=== PATIENT | female | born 1980 | race Caucasian/White ===

== ENCOUNTER 2017-12-20 12:31 | Outpatient (CLI) | payer OTHER ==
[2017-12-20 12:58] LABS: BASOPHILS # (AUTO) 0.1 10^3/uL (0.0-0.1); BASOPHILS % (AUTO) 0.5 %; EOSINOPHILS # (AUTO) 0.1 10^3/uL (0.0-0.7); EOSINOPHILS % (AUTO) 1.3 %; HGB - HEMOGLOBIN 13.2 g/dL (12.0-16.0); LYMPHOCYTES # (AUTO) 2.3 10^3/uL (1.5-3.5); LYMPHOCYTES % (AUTO) 22.2 %; MEAN CORPUSCULAR HEMOGLOBIN 26.4 pg (27.0-31.0); MEAN CORPUSCULAR HGB CONC 33.5 g/dL (32.0-36.0); MEAN CORPUSCULAR VOLUME 79.1 fL (81.0-99.0); MEAN PLATELET VOLUME 8.1 fL (7.9-10.8); MONOCYTES # (AUTO) 0.8 10^3/uL (0.0-1.0); NEUTROPHILS # (AUTO) 7.2 10^3/uL (1.5-6.6); PLT - PLATELET COUNT 272 10^3/uL (130-450); RED BLOOD COUNT 4.99 10^6/uL (4.20-5.40); RED CELL DISTRIBUTION WIDTH 14.4 % (12.0-15.0); WHITE BLOOD COUNT 10.6 x10^3/uL (4.8-10.8)
== END 2017-12-20 12:32 | disposition home or self-care (01) ==
LOC: LAB 12:31
DX: T81.9XXA Unspecified complication of procedure, initial encounter (principal)
CPT/HCPCS: 36415; 85025

== ENCOUNTER 2018-05-24 09:55 | Outpatient (CLI) | payer OTHER ==
[2018-05-24 10:07] LABS: BILIRUBIN,URINE NEGATIVE (NEGATIVE); GLUCOSE, URINE (UA) NEGATIVE (NEGATIVE); KETONES,URINE (UA) NEGATIVE (NEGATIVE); LEUKOCYTE ESTERASE, URINE NEGATIVE (NEGATIVE); NITRITE,URINE NEGATIVE (NEGATIVE); OCCULT BLOOD,URINE NEGATIVE (NEGATIVE); PROTEIN,URINE NEGATIVE (NEGATIVE); UROBILINOGEN,URINE 0.2 (NORMAL) E.U./dL (NORMAL)
[2018-05-24 10:22] LABS: BACTERIA,URINE None Seen /HPF (None Seen); CLARITY,URINE CLEAR (CLEAR); RBC,URINE None Seen /HPF (0-5); SQUAMOUS EPITHELIAL CELL,UR FEW Squamous (<= Few)
== END 2018-05-24 09:56 | disposition home or self-care (01) ==
LOC: LAB 09:55
PROVIDERS: ATTEND Obstetrics & Gynecology
DX: R39.9 Unspecified symptoms and signs involving the genitourinary system (principal); R30.0 Dysuria
CPT/HCPCS: 81001; 87086

== ENCOUNTER 2018-08-10 16:44 | Emergency (ER) | payer BC, OTHER ==
[2018-08-10 17:05] LABS: BILIRUBIN,URINE NEGATIVE (NEGATIVE); GLUCOSE, URINE (UA) NEGATIVE (NEGATIVE); KETONES,URINE (UA) TRACE mg/dL (NEGATIVE); LEUKOCYTE ESTERASE, URINE NEGATIVE (NEGATIVE); NITRITE,URINE NEGATIVE (NEGATIVE); OCCULT BLOOD,URINE NEGATIVE (NEGATIVE); PH,URINE 5.5 PH (5.0-7.5); PROTEIN,URINE NEGATIVE (NEGATIVE); UROBILINOGEN,URINE 0.2 (NORMAL) E.U./dL (NORMAL)
[2018-08-10 17:06] LABS: CLARITY,URINE CLEAR (CLEAR); HCG UR QUAL NEGATIVE
--- NOTE | 2018-08-10 17:09 | ED Physician Documentation ---
PD HPI ABD PAIN - Stated complaint Stated Complaint: ABD PX - Chief complaint Chief Complaint: Abd Pain - History obtained from History obtained from: Patient - History of Present Illness Timing - onset: Other (For the last 3 days she has had constant but at times worsening right upper quadrant and epigastric pain that became acutely worse after eating a roast beef sandwich today. She has no history of abdominal surgeries, but is being planned for hysterectomy for MEEK-3 in the near future.) Review of Systems Ten Systems: 10 systems reviewed and negative Constitutional: reports: Reviewed and negative. denies: Fever, Chills Cardiac: denies: Chest pain / pressure, Palpitations Respiratory: denies: Dyspnea, Cough GI: reports: Abdominal Pain, Nausea. 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 : None HEENT: None Psych: None Musculoskeletal: None Derm: None - Past Surgical History Past Surgical History: No - Present Medications Home Medications: Ambulatory Orders Medication Instructions Recorded Confirmed Levonorgestrel [Mirena] 08/10/18 - Allergies Allergies/Adverse Reactions: Allergies Allergy/AdvReac Type Severity Reaction Status Date / Time No Known Drug Allergies Allergy Verified 08/10/18 16:54 - Social History Does the pt smoke?: No Smoking Status: Never smoker Does the pt drink ETOH?: No Does the pt have substance abuse?: No - Immunizations Immunizations are current?: Yes - POLST Patient has POLST: No PD ED PE NORMAL - Vitals Vital signs reviewed: Yes - General General: Alert and oriented X 3, No acute distress - HEENT HEENT: PERRL, EOMI - Neck Neck: Supple, no meningeal sign, No bony TTP - Cardiac Cardiac: RRR, No murmur - Respiratory Respiratory: No respiratory distress, Clear bilaterally - Abdomen Abdomen: Other (TTP RUQ, +Jackpot) - Back Back: No CVA TTP, No spinal TTP - Derm Derm: Normal color, Warm and dry - Extremities Extremities: No edema, No calf tenderness / cord - Neuro Neuro: Alert and oriented X 3, Normal speech Results - Vitals Vitals: Vital Signs - 24 hr 08/10/18 08/10/18 16:51 16:53 Temperature 36 C L Heart Rate 70 73 Respiratory 18 16 Rate Blood Pressure 141/76 H 134/86 H O2 Saturation 97 99 Oxygen O2 Source Room air - Labs Labs: Laboratory Tests 08/10/18 08/10/18 08/10/18 16:51 17:20 17:20 WBC 8.2 RBC 5.29 Hgb 13.2 Hct 41.7 MCV 78.8 L MCH 24.9 L MCHC 31.6 L RDW 15.6 H Plt Count 305 MPV 7.8 L Neut # (Auto) 5.5 Lymph # (Auto) 2.2 [place] # (Auto) 0.4 Eos # (Auto) 0.1 Baso # (Auto) 0.1 Absolute Nucleated RBC 0.00 Nucleated RBC % 0.0 Sodium 137 Potassium 3.7 Chloride 103 Carbon Dioxide 25 Anion Gap 9.0 BUN 21 H Creatinine 1.1 H Estimated GFR (MDRD) 57 L Glucose 95 Calcium 9.0 Total Bilirubin 0.5 AST 18 ALT 20 Alkaline Phosphatase 59 Total Protein 7.0 Albumin 4.0 Globulin 3.0 Albumin/Globulin Ratio 1.3 Lipase 29 Urine Color YELLOW Urine Clarity CLEAR Urine pH 5.5 Ur Specific [place] >=1.030 H Urine Protein NEGATIVE Urine Glucose (UA) NEGATIVE Urine Ketones TRACE Urine Occult Blood NEGATIVE Urine Nitrite NEGATIVE Urine Bilirubin NEGATIVE Urine Urobilinogen 0.2 (NORMAL) Ur Leukocyte Esterase NEGATIVE Ur Microscopic Review NOT INDICATED Urine Culture Comments NOT INDICATED Urine HCG, Qual NEGATIVE - Rads (name of study) RUQ sono Radiology: Prelim report reviewed (no stones, normal) PD MEDICAL DECISION MAKING - ED course ED course: This is a 37-year-old woman who has pain suggestive of a biliary source, however no significant abnormal findings were found there. CT scan was offered but she declined. Discussed the need for HIDA scanning if she has persistent similar pain to completely rule out a biliary etiology. Departure - Departure Disposition: Home, Self Care Clinical Impression: Abdominal pain Condition: Good Record reviewed to determine appropriate education?: Yes Instructions: Abdominal Pain Comments: HIDA scan if symptoms are persistent. Return if worse. Discharge Date/Time: 08/10/18 18:26
[2018-08-10 17:24] LABS: BASOPHILS # (AUTO) 0.1 10^3/uL (0.0-0.1); BASOPHILS % (AUTO) 0.9 %; EOSINOPHILS # (AUTO) 0.1 10^3/uL (0.0-0.7); EOSINOPHILS % (AUTO) 1.3 %; HGB - HEMOGLOBIN 13.2 g/dL (12.0-16.0); LYMPHOCYTES # (AUTO) 2.2 10^3/uL (1.5-3.5); LYMPHOCYTES % (AUTO) 26.3 %; MEAN CORPUSCULAR HEMOGLOBIN 24.9 pg (27.0-31.0); MEAN CORPUSCULAR HGB CONC 31.6 g/dL (32.0-36.0); MEAN CORPUSCULAR VOLUME 78.8 fL (81.0-99.0); MEAN PLATELET VOLUME 7.8 fL (7.9-10.8); MONOCYTES # (AUTO) 0.4 10^3/uL (0.0-1.0); MONOCYTES % (AUTO) 5.2 %; NEUTROPHILS # (AUTO) 5.5 10^3/uL (1.5-6.6); NEUTROPHILS % (AUTO) 66.3 %; PLT - PLATELET COUNT 305 10^3/uL (130-450); RED BLOOD COUNT 5.29 10^6/uL (4.20-5.40); RED CELL DISTRIBUTION WIDTH 15.6 % (12.0-15.0); WHITE BLOOD COUNT 8.2 x10^3/uL (4.8-10.8)
[2018-08-10 17:40] LABS: ALBUMIN/GLOBULIN RATIO 1.3 (1.0-2.2); BILIRUBIN,TOTAL 0.5 mg/dL (0.2-1.0); CREATININE 1.1 mg/dL (0.4-1.0)
[2018-08-10] MEDS: LIDOCAINE VISCOUS 2% 15 ML UDC MM STA (18:01)
[2018-08-10] MEDS: MAG HYDROX/AL HYDROX/SIMETH 30 ML UDC PO STA (18:01)
[2018-08-10 18:09] VITALS: BP 134/86
[2018-08-10] MEDS ORDERED: HYDROcod/ACETAM 5/325 MG TABLET PO STA (18:17)
--- NOTE | 2018-08-10 18:19 | Ultrasound Report ---
Reason: RUQ pain Procedure Date: 08/10/2018 Accession Number: [id number] / [id number] Procedure: US - Abdomen Limited CPT Code: FULL RESULT: EXAM: ABDOMEN ULTRASOUND LIMITED, RUQ EXAM DATE: 08/10/2018 05:50 PM. CLINICAL HISTORY: Right upper quadrant pain in a 37-year-old female. COMPARISON: None. TECHNIQUE: Real-time scanning was performed with static images obtained. FINDINGS: Liver: Normal in size and echotexture. Normal contour. No mass or cyst. Normal liver length at 16 cm. Main portal vein flow: Hepatopetal. Gallbladder: Mildly contracted secondary to eating 5 hours ago. No stones, wall thickening, or sonographic Reyes's sign. Biliary System: CBD measures 3.1 mm. No intrahepatic or extrahepatic ductal dilatation. Right kidney: Unremarkable. No nephrolithiasis or hydronephrosis. Other: No free fluid or lymphadenopathy in the visualized abdomen. IMPRESSION: Mildly contracted gallbladder likely secondary to non-NPO status. Abdominal pain, but not specifically greater in the region of the gallbladder. No gallstones, wall thickening or dilated bile ducts. Remainder of the visualized abdomen unremarkable. RADIA
[2018-08-10] MEDS: IBUPROFEN 800 MG TABLET PO STA (18:25)
== END 2018-08-10 18:26 | disposition home or self-care (01) ==
LOC: ED 16:44
DX: R10.11 Right upper quadrant pain (principal)
CPT/HCPCS: 36415; 76705; 80053; 81001; 81003; 81025; 83690; 85025; 87086; 99282; 99283

== ENCOUNTER 2018-08-31 11:57 | Outpatient (CLI) | payer BC ==
--- NOTE | 2018-08-31 15:15 | Nuclear Medicine Report ---
Reason: ABNORMAL PAIN, RIGHT UPPER QUADRANT Procedure Date: 08/31/2018 Accession Number: [id number] / [id number] Procedure: NM - Hepatobiliary HIDA w/o Rx CPT Code: FULL RESULT: EXAM: HEPATOBILIARY SCAN EXAM DATE: 08/31/2018 01:37 PM. CLINICAL HISTORY: ABNORMAL PAIN, RIGHT UPPER QUADRANT. COMPARISON: ABDOMEN LIMITED 08/10/2018 5:23 PM TECHNIQUE: Following the intravenous administration of 5.1 mCi of Tc99m Mebrofenin, a hepatobiliary scan was done centered on the right upper quadrant region in multiple sequential images and projections. Morphine sulfate given: No. Four-hour delayed images performed: No. FINDINGS: Normal extraction of tracer from the blood pool indicating normal hepatocellular function. The liver size and shape is grossly within normal limits. Appearance of tracer in the biliary tree as early as 5 minutes, within normal limits. Appearance of tracer in the gallbladder as early as 10 minutes, within normal limits, with good progression of filling throughout the remainder of the initial hour. There may be minimal small bowel activity at approximately 15-20 minutes however no significant activity is seen subsequently. No evidence of enteric reflux into the stomach. Substantial activity remains in the common bile duct at the end of the study at 55-60 minutes. IMPRESSION: 1. No scintigraphic evidence of acute cholecystitis. 2. Minimal small bowel activity is seen over the initial hour of imaging; a component of functional or mechanical obstruction is not excluded. Delayed imaging could be performed for improved specificity. RADIA
== END 2018-08-31 11:58 | disposition home or self-care (01) ==
LOC: DI 11:57
PROVIDERS: ATTEND Physician Assistant
DX: R10.11 Right upper quadrant pain (principal)
CPT/HCPCS: 78226

== ENCOUNTER 2018-09-17 13:28 | Emergency (ER) | payer BC, OTHER ==
[2018-09-17] MEDS ORDERED: SODIUM CHLORIDE 0.9% 1,000 ML IV ONE (13:44)
[2018-09-17] MEDS ORDERED: MORPHINE 10 MG/ML VIAL IVP STA (13:44)
[2018-09-17] MEDS ORDERED: ONDANSETRON 4 MG/2 ML VIAL IVP STA (13:44)
[2018-09-17 13:50] LABS: BASOPHILS # (AUTO) 0.1 10^3/uL (0.0-0.1); BASOPHILS % (AUTO) 0.7 %; EOSINOPHILS # (AUTO) 0.1 10^3/uL (0.0-0.7); EOSINOPHILS % (AUTO) 1.6 %; HGB - HEMOGLOBIN 14.3 g/dL (12.0-16.0); LYMPHOCYTES # (AUTO) 1.9 10^3/uL (1.5-3.5); LYMPHOCYTES % (AUTO) 22.4 %; MEAN CORPUSCULAR HEMOGLOBIN 25.1 pg (27.0-31.0); MEAN CORPUSCULAR HGB CONC 32.8 g/dL (32.0-36.0); MEAN CORPUSCULAR VOLUME 76.4 fL (81.0-99.0); MEAN PLATELET VOLUME 7.5 fL (7.9-10.8); MONOCYTES # (AUTO) 0.6 10^3/uL (0.0-1.0); MONOCYTES % (AUTO) 6.8 %; NEUTROPHILS # (AUTO) 5.7 10^3/uL (1.5-6.6); NEUTROPHILS % (AUTO) 68.5 %; PLT - PLATELET COUNT 284 10^3/uL (130-450); RED BLOOD COUNT 5.69 10^6/uL (4.20-5.40); RED CELL DISTRIBUTION WIDTH 15.6 % (12.0-15.0); WHITE BLOOD COUNT 8.4 x10^3/uL (4.8-10.8)
[2018-09-17 13:59] LABS: ALBUMIN 4.4 g/dL (3.2-5.5); ALBUMIN/GLOBULIN RATIO 1.3 (1.0-2.2); BILIRUBIN,TOTAL 0.7 mg/dL (0.2-1.0); CALCIUM 9.6 mg/dL (8.5-10.3); CREATININE 0.7 mg/dL (0.4-1.0); TOTAL PROTEIN 7.9 g/dL (6.7-8.2)
--- NOTE | 2018-09-17 14:02 | ED Physician Documentation ---
History of Present Illness - Stated complaint Stated Complaint: ABD PX - Chief complaint Chief Complaint: Abd Pain - History obtained from History obtained from: Patient - History of Present Illness Pain level max: 8 Pain level now: 8 Improved by: nothing Worsened by: movement - Additonal information Additional information: 37 y/o F s/p AUBRIE [address] [facility] [address] Dr. Raphael. Increased bright vaginal bleeding over the past 2 days. Increasing lower abdominal pain and swelling. She is having normal bowel movements. No vomiting. No fevers. States she feels like she is having discharge as well. Increased pain last night and had a syncopal event. 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 HEENT: None Psych: None Musculoskeletal: None Derm: None - Past Surgical History Past Surgical History: No - Present Medications Home Medications: Ambulatory Orders Medication Instructions Recorded Confirmed Ibuprofen [Ibu] 600 mg PO 09/17/18 09/17/18 Ondansetron Odt [Zofran] 4 mg TL Q6H PRN #20 tablet 09/17/18 Oxycodone HCl 5 - 10 mg PO Q6H PRN #20 tablet 09/17/18 oxyCODONE/ACET 5/325 [Percocet 5 1 each PO Q4-6H 09/17/18 09/17/18 mg/325 mg] - Allergies Allergies/Adverse Reactions: Allergies Allergy/AdvReac Type Severity Reaction Status Date / Time No Known Drug Allergies Allergy Verified 09/17/18 13:35 - Social History Does the pt smoke?: No Smoking Status: Never smoker Does the pt drink ETOH?: No Does the pt have substance abuse?: No - Immunizations Immunizations are current?: Yes - POLST Patient has POLST: No PD ED PE NORMAL - Vitals Vital signs reviewed: Yes - General General: Alert and oriented X 3, No acute distress - HEENT HEENT: PERRL - Neck Neck: Supple, no meningeal sign - Cardiac Cardiac: RRR, No murmur - Respiratory Respiratory: Clear bilaterally - Abdomen Abdomen: Normal bowel sounds, Soft, Non distended, Other (TTP lower abdomen, incisions are CDI. ) - Female Female : Pt declined - Back Back: No spinal TTP - Derm Derm: Warm and dry, No rash - Extremities Extremities: No edema - Neuro Neuro: Alert and oriented X 3 - Psych Psych: Normal mood, Normal affect Results - Vitals Vitals: Vital Signs - 24 hr 09/17/18 09/17/18 09/17/18 13:32 14:05 15:47 Temperature 36.4 C L Heart Rate 81 70 72 Respiratory 16 14 14 Rate Blood Pressure 144/90 H 122/74 122/70 O2 Saturation 98 97 99 Oxygen O2 Source Room air - Labs Labs: Laboratory Tests 09/17/18 09/17/18 09/17/18 13:40 13:40 14:45 WBC 8.4 RBC 5.69 H Hgb 14.3 Hct 43.5 MCV 76.4 L MCH 25.1 L MCHC 32.8 RDW 15.6 H Plt Count 284 MPV 7.5 L Neut # (Auto) 5.7 Lymph # (Auto) 1.9 [place] # (Auto) 0.6 Eos # (Auto) 0.1 Baso # (Auto) 0.1 Absolute Nucleated RBC 0.00 Nucleated RBC % 0.0 Sodium 135 Potassium 3.3 L Chloride 98 L Carbon Dioxide 28 Anion Gap 9.0 BUN 15 Creatinine 0.7 Estimated GFR (MDRD) 95 Glucose 110 H Calcium 9.6 Total Bilirubin 0.7 AST 24 ALT 25 Alkaline Phosphatase 71 Total Protein 7.9 Albumin 4.4 Globulin 3.5 Albumin/Globulin Ratio 1.3 Lipase 28 Urine Color YELLOW Urine Clarity HAZY Urine pH 5.0 Ur Specific [place] 1.010 Urine Protein NEGATIVE Urine Glucose (UA) NEGATIVE Urine Ketones NEGATIVE Urine Occult Blood MODERATE H Urine Nitrite NEGATIVE Urine Bilirubin NEGATIVE Urine Urobilinogen 0.2 (NORMAL) Ur Leukocyte Esterase NEGATIVE Urine RBC 6-10 H Urine WBC 0-3 Ur Squamous Epith Cells FEW Squamous Urine Bacteria None Seen Ur Microscopic Review INDICATED Urine Culture Comments NOT INDICATED - Rads (name of study) CT abd/pelvis Radiology: Prelim report reviewed, EMP read contemporaneously, See rad report (Soft tissue prominence in the region of the vaginal cuff may reflect postoperative inflammation. Infection not excluded. No organized fluid collection is evident. 2. Nonspecific trace free pelvic fluid, may be physiologic. 3. Evidence of past granulomatous disease. 4. Other findings as noted above. ) PD MEDICAL DECISION MAKING - ED course Complexity details: reviewed results, re-evaluated patient, considered differential, d/w patient ED course: 37-year-old female 8 days status post a total abdominal hysterectomy. There is soft tissue prominence in the region of the vaginal cuff, feel that this is u nlikely to reflect infection at this time given her normal white count, lack of fever. Feels better after pain medication and IV fluids. Will prescribe pain medication for home and have her follow-up closely with her doctor. She is well-appearing, nontoxic. Abdomen is soft and minimally tender on serial exam. Patient counseled regarding signs and symptoms for which I believe and urgent re-evaluation would be necessary. Patient with good understanding of and agreement to plan and is comfortable going home at this time This document was made in part using voice recognition software. While efforts are made to proofread this document, sound alike and grammatical errors may occur. Departure - Departure Disposition: 01 Home, Self Care Clinical Impression: Postoperative abdominal pain Condition: Good Instructions: ED Post Op Pain Follow-Up: Shalini Pearson MD [Physician No Access] - Within 1 week Prescriptions: Ondansetron Odt [Zofran] 4 mg TL Q6H PRN #20 tablet PRN Reason: Nausea / Vomiting Oxycodone HCl 5 - 10 mg PO Q6H PRN #20 tablet PRN Reason: Abdominal Pain Comments: Return if you worsen. Go home and rest. Do not drink alcohol or drive while on narcotic pain medicine. Note that many narcotic pain relievers also contain tylenol/acetaminophen. Please ensure that your total dose of acetaminophen from all sources does not exceed 3 grams (3000mg) per day. You may constipated on this medication, take a stool softener such as "Colace" twice a day while you are on it. Also recommend a calg-zzt-emaxsdi laxative such as senna or MiraLAX any day that you do not have a bowel movement. If you received narcotic pain medication in the emergency department, do not drive or operate machinery for the next 24 hours. Discharge Date/Time: 09/17/18 15:47
[2018-09-17] MEDS ORDERED: IOVERSOL 320 100 ML VIAL IVP ONE ×2 (14:16→14:42)
--- NOTE | 2018-09-17 14:54 | CT Report ---
Reason: pod 8 s/p AUBRIE, increased pain/bleeding Procedure Date: 09/17/2018 Accession Number: [id number] / [id number] Procedure: CT - Abdomen/Pelvis W CPT Code: FULL RESULT: EXAM: CT ABDOMEN AND PELVIS EXAM DATE: 09/17/2018 02:40 PM. CLINICAL HISTORY: Pod 8 s/p AUBRIE, increased pain/bleeding. COMPARISONS: None. TECHNIQUE: Routine helical CT imaging was performed through the abdomen and pelvis. IV contrast: opti 320 90 ml. Enteric contrast: No. Reconstructions: Coronal and sagittal. In accordance with CT protocol optimization, one or more of the following dose reduction techniques were utilized for this exam: automated exposure control, adjustment of mA and/or KV based on patient size, or use of iterative reconstructive technique. FINDINGS: Lung Bases: Small calcified left lower lobe granuloma. Left inferior hilar calcified lymph nodes. Liver: Normal. No masses. Gallbladder/Bile Ducts: Unremarkable. Spleen: Small calcified presumed splenic granuloma. Pancreas: Normal. Adrenal Glands: Normal. Kidneys: Mildly prominent extrarenal pelves bilaterally without sri hydronephrosis. No convincing renal or ureteral calculi. No solid mass. Peritoneal Cavity/Bowel: No free air. There is trace free pelvic fluid. No mass or acute inflammatory process. No obstruction. The appendix is well visualized and normal. No pathologic lymphadenopathy. Pelvic Organs: Uterus is absent. There is soft tissue prominence in the region of the vaginal cuff which may reflect postoperative inflammation. Infection not excluded. No convincing organized fluid collection is evident. There is nonspecific small volume fluid/air within the vaginal cuff. Adnexal structures are unremarkable. Vasculature: No aneurysms or other significant abnormality. Bones: No significant abnormality. Other: None. IMPRESSION: 1. Soft tissue prominence in the region of the vaginal cuff may reflect postoperative inflammation. Infection not excluded. No organized fluid collection is evident. 2. Nonspecific trace free pelvic fluid, may be physiologic. 3. Evidence of past granulomatous disease. 4. Other findings as noted above. RADIA
[2018-09-17 15:44] LABS: BILIRUBIN,URINE NEGATIVE (NEGATIVE); GLUCOSE, URINE (UA) NEGATIVE (NEGATIVE); KETONES,URINE (UA) NEGATIVE (NEGATIVE); LEUKOCYTE ESTERASE, URINE NEGATIVE (NEGATIVE); NITRITE,URINE NEGATIVE (NEGATIVE); OCCULT BLOOD,URINE MODERATE (NEGATIVE); PROTEIN,URINE NEGATIVE (NEGATIVE); UROBILINOGEN,URINE 0.2 (NORMAL) E.U./dL (NORMAL)
[2018-09-17 15:48] VITALS: BP 122/70
[2018-09-17 15:54] LABS: CLARITY,URINE HAZY (CLEAR)
[2018-09-17 16:10] LABS: BACTERIA,URINE None Seen /HPF (None Seen); SQUAMOUS EPITHELIAL CELL,UR FEW Squamous (<= Few)
== END 2018-09-17 15:47 | disposition home or self-care (01) ==
LOC: ED 13:28
DX: G89.18 Other acute postprocedural pain (principal)
CPT/HCPCS: 36415; 74177; 80053; 81001; 83690; 85025; 96374; 99283; 99284; Q9967; 81003; 87086

== ENCOUNTER 2019-08-29 08:02 | Outpatient (CLI) | payer BC ==
--- NOTE | 2019-09-06 08:48 | Mammography Report ---
Reason: ROUTINE MAMMO Procedure Date: 08/29/2019 Accession Number: [id number] / [id number] Procedure: [facility] - Screening Mammo w/Jeff CPT Code: Final Report FULL RESULT: EXAM: Screening Mammo w/Jeff DATE: 08/29/2019 8:55 AM CLINICAL HISTORY: Screening encounter. Family history of breast cancer in multiple second degree relatives. TECHNIQUE: (B) - Bilateral CC, laterally exaggerated CC, MLO views were obtained. COMPARISON: None PARENCHYMAL PATTERN: (D) - The breast(s) demonstrate(s) heterogeneously dense fibroglandular parenchyma. FINDINGS: In the upper outer right breast approximately 6 cm from the nipple is a partially obscured tomographically well circumscribed 2 cm mass as seen on CC image 26 and MLO image 14, and absence of prior comparison studies this should be further characterized with ultrasound. There are no suspicious masses, calcifications, or areas of distortion in the left breast. IMPRESSION: Incomplete examination. BI-RADS category 0. RECOMMENDATION: (ADDUS) - Targeted ultrasound recommended. Right breast. BI-RADS CATEGORY: (0) - Incomplete Examination - need additional evaluation. STANDARD QUALIFYING STATEMENTS: 1. This examination was not reviewed with the aid of Computer-Aided Detection (CAD). 2. A negative or benign imaging report should not preclude biopsy if clinically suspicious findings are present. 3. Dense breasts may obscure an underlying neoplasm. 4. This examination was reviewed with the aid of 3D breast imaging (tomosynthesis).
== END 2019-08-29 08:03 | disposition home or self-care (01) ==
LOC: DI 08:02
DX: Z12.31 Encounter for screening mammogram for malignant neoplasm of breast (principal); R92.8 Other abnormal and inconclusive findings on diagnostic imaging of breast; Z80.3 Family history of malignant neoplasm of breast
CPT/HCPCS: 77063; 77067

== ENCOUNTER 2019-09-22 08:35 | Outpatient (CLI) | payer BC ==
--- NOTE | 2019-09-22 10:28 | Ultrasound Report ---
Reason: ABNORMAL MAMMOGRAM Procedure Date: 09/22/2019 Accession Number: [id number] / [id number] Procedure: US - Breast Unilateral Limited CPT Code: Final Report FULL RESULT: EXAM: Breast Unilateral Limited DATE: 09/22/2019 9:07 AM CLINICAL HISTORY: Diagnostic examination. The patient is recalled from screening for a right breast mass. COMPARISON: 08/29/2019. TECHNIQUE: Targeted ultrasound was performed of the right breast in the area of clinical concern at 10 o'clock and 7 cm distance from the nipple. Color Doppler was employed as appropriate. FINDINGS: A wider than tall homogenously hypoechoic well-circumscribed mass with mild internal vascularity by limited color Doppler is identified with dimensions of 1.5 x 0.6 x 1.8 cm. The mass corresponds in size shape and location to the mammographic findings and is probably a benign fibroadenoma. No suspicious mass, architectural distortion or fluid collection is identified. IMPRESSION: Probable benign findings RECOMMENDATION: Recommend diagnostic right breast ultrasound in 6 months. BIRADS CATEGORY 3 RADIA
== END 2019-09-22 08:36 | disposition home or self-care (01) ==
LOC: DI 08:35
PROVIDERS: ATTEND Physician Assistant
DX: R92.8 Other abnormal and inconclusive findings on diagnostic imaging of breast (principal)
CPT/HCPCS: 76642

== ENCOUNTER 2020-01-18 11:27 | Emergency (ER) | payer BC ==
[2020-01-18 11:50] LABS: GLUCOSE, URINE (UA) NEGATIVE (NEGATIVE); KETONES,URINE (UA) >=80 mg/dL (NEGATIVE); LEUKOCYTE ESTERASE, URINE NEGATIVE (NEGATIVE); NITRITE,URINE NEGATIVE (NEGATIVE); OCCULT BLOOD,URINE NEGATIVE (NEGATIVE); PROTEIN,URINE NEGATIVE (NEGATIVE); UROBILINOGEN,URINE 0.2 (NORMAL) E.U./dL (NORMAL)
[2020-01-18 11:53] LABS: CLARITY,URINE CLEAR (CLEAR)
[2020-01-18 11:54] LABS: BILIRUBIN,URINE NEGATIVE (NEGATIVE); HCG UR QUAL NEGATIVE; ICTOTEST,URINE NEGATIVE
--- NOTE | 2020-01-18 12:04 | ED Physician Documentation ---
PD HPI ABD PAIN - Stated complaint Stated Complaint: ABD PX - Chief complaint Chief Complaint: Abd Pain - History obtained from History obtained from: Patient - Additional information Additional information: 39-year-old woman with history of hysterectomy presents with several months worth of intermittent diarrhea cramps and tenesmus that has been much worse since this morning. Now it is associated with drips of bright red blood per rectum without rectal pain. She has left lower quadrant pain and was referred here from her primary care physician's office for potential CT. She denies fevers. She does have decreased appetite related to all of this. No specific food triggers. She is nauseous today. No vomiting. No fevers. Travel to [place] about a month and a half ago. No water contact there though. No recent antibiotics. Review of Systems Ten Systems: 10 systems reviewed and negative Cardiac: denies: Chest pain / pressure, Palpitations Respiratory: denies: Dyspnea, Cough GI: reports: Abdominal Pain, Nausea, Diarrhea, Bloody / black stool. 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 HEENT: None Psych: None Musculoskeletal: None Derm: None - Past Surgical History Past Surgical History: No - Present Medications Home Medications: Ambulatory Orders Medication Instructions Recorded Confirmed Dicyclomine HCl 20 mg PO QID PRN #20 tablet 01/18/20 Escitalopram Oxalate 10 mg PO DAILY #90 tablet 01/18/20 Ondansetron Odt [Zofran] 4 mg TL Q6H PRN #10 tablet 01/18/20 - Allergies Allergies/Adverse Reactions: Allergies Allergy/AdvReac Type Severity Reaction Status Date / Time No Known Drug Allergies Allergy Verified 09/17/18 13:35 - Social History Does the pt smoke?: No Smoking Status: Never smoker Does the pt drink ETOH?: No Does the pt have substance abuse?: No - Immunizations Immunizations are current?: Yes - POLST Patient has POLST: No PD ED PE NORMAL - Vitals Vital signs reviewed: Yes - General General: Alert and oriented X 3, No acute distress - Cardiac Cardiac: RRR, No murmur - Respiratory Respiratory: No respiratory distress, Clear bilaterally - Abdomen Abdomen: Normal bowel sounds, Soft, Other (Tender in the left lower quadrant without surgical signs) - Derm Derm: Normal color, Warm and dry - Extremities Extremities: No edema, No calf tenderness / cord - Neuro Neuro: Alert and oriented X 3, Normal speech Results - Vitals Vitals: Vital Signs - 24 hr 01/18/20 11:30 Temperature 36.3 C L Heart Rate 74 Respiratory 10 L Rate Blood Pressure 137/94 H O2 Saturation 99 Oxygen O2 Source Room air - Labs Labs: Laboratory Tests 01/18/20 01/18/20 01/18/20 11:40 12:00 12:00 WBC 7.9 RBC 5.52 H Hgb 15.8 Hct 47.8 H MCV 86.6 MCH 28.6 MCHC 33.1 RDW 13.1 Plt Count 309 MPV 9.3 Neut # (Auto) 5.6 Lymph # (Auto) 1.6 [place] # (Auto) 0.6 Eos # (Auto) 0.0 Baso # (Auto) 0.1 Absolute Nucleated RBC 0.00 Nucleated RBC % 0.0 Sodium 138 Potassium 3.4 L Chloride 99 L Carbon Dioxide 27 Anion Gap 12.0 BUN 11 Creatinine 0.8 Estimated GFR (MDRD) 81 L Glucose 100 Calcium 9.2 Total Bilirubin 0.9 AST 19 ALT 18 Alkaline Phosphatase 63 Total Protein 7.8 Albumin 4.8 Globulin 3.0 Albumin/Globulin Ratio 1.6 Lipase 77 H Urine Color YELLOW Urine Clarity CLEAR Urine pH 6.0 Ur Specific [place] >=1.030 H Urine Protein NEGATIVE Urine Glucose (UA) NEGATIVE Urine Ketones >=80 H Urine Occult Blood NEGATIVE Urine Nitrite NEGATIVE Urine Bilirubin NEGATIVE Urine Urobilinogen 0.2 (NORMAL) Ur Leukocyte Esterase NEGATIVE Ur Microscopic Review NOT INDICATED Urine Culture Comments NOT INDICATED Urine HCG, Qual NEGATIVE - Rads (name of study) CT A/P Radiology: EMP read contemporaneously (NAD) PD MEDICAL DECISION MAKING - ED course ED course: 39-year-old woman presents with subacute now worsening abdominal pain and diarrhea. After long discussion she admits fully that this may be related to anxiety and she has multiple personal stressors. Is amenable to starting escitalopram but understands she also needs to complete the work-up with a colonoscopy given her symptoms. Departure - Departure Disposition: 01 Home, Self Care Clinical Impression: Hematochezia Diarrhea Qualifiers: Diarrhea type: unspecified type Qualified Code(s): R19.7 - Diarrhea, unspecified Abdominal pain Qualifiers: Abdominal location: left lower quadrant Qualified Code(s): R10.32 - Left lower quadrant pain Condition: Good Record reviewed to determine appropriate education?: Yes Instructions: ED Abdominal Pain Unkn Cause Prescriptions: Dicyclomine HCl 20 mg PO QID PRN #20 tablet PRN Reason: Abdominal Pain Escitalopram Oxalate 10 mg PO DAILY #90 tablet Ondansetron Odt [Zofran] 4 mg TL Q6H PRN #10 tablet PRN Reason: Nausea / Vomiting Comments: Talk with your primary care physician about a referral for colonoscopy. Return for new or worsening symptoms.
[2020-01-18 12:19] LABS: BASOPHILS # (AUTO) 0.1 10^3/uL (0.0-0.1); BASOPHILS % (AUTO) 0.6 %; EOSINOPHILS % (AUTO) 0.5 %; HGB - HEMOGLOBIN 15.8 g/dL (12.0-16.0); LYMPHOCYTES # (AUTO) 1.6 10^3/uL (1.5-3.5); LYMPHOCYTES % (AUTO) 19.7 %; MEAN CORPUSCULAR HEMOGLOBIN 28.6 pg (27.0-31.0); MEAN CORPUSCULAR HGB CONC 33.1 g/dL (32.0-36.0); MEAN CORPUSCULAR VOLUME 86.6 fL (81.0-99.0); MEAN PLATELET VOLUME 9.3 fL (7.9-10.8); MONOCYTES # (AUTO) 0.6 10^3/uL (0.0-1.0); NEUTROPHILS # (AUTO) 5.6 10^3/uL (1.5-6.6); NEUTROPHILS % (AUTO) 71.6 %; PLT - PLATELET COUNT 309 10^3/uL (130-450); RED BLOOD COUNT 5.52 10^6/uL (4.20-5.40); RED CELL DISTRIBUTION WIDTH 13.1 % (12.0-15.0); WHITE BLOOD COUNT 7.9 x10^3/uL (4.8-10.8)
[2020-01-18] MEDS ORDERED: ONDANSETRON 4 MG/2 ML VIAL IVP STA ×2 (12:19→13:45)
[2020-01-18 12:31] LABS: ALBUMIN 4.8 g/dL (3.2-5.5); ALBUMIN/GLOBULIN RATIO 1.6 (1.0-2.2); BILIRUBIN,TOTAL 0.9 mg/dL (0.2-1.0); CALCIUM 9.2 mg/dL (8.5-10.3); CREATININE 0.8 mg/dL (0.4-1.0); TOTAL PROTEIN 7.8 g/dL (6.7-8.2)
[2020-01-18] MEDS ORDERED: IOVERSOL 320 100 ML VIAL IVP ONE ×2 (12:38→14:49)
--- NOTE | 2020-01-18 13:32 | CT Report ---
PROCEDURE: Abdomen/Pelvis W INDICATIONS: LLQ tenderness, IV only CONTRAST: IV CONTRAST: Optiray 320 ml: 100 PO CONTRAST: *NO PO CONTRAST TECHNIQUE: After the administration of oral and intravenous contrast, 5 mm thick sections acquired from the diap hragms to the symphysis. 5 mm thick coronal and sagittal reformats were acquired. For radiation dos e reduction, the following was used: automated exposure control, adjustment of mA and/or kV accordin g to patient size. COMPARISON: 09/17/2018. FINDINGS: Image quality: Excellent. ABDOMEN: Lung bases: A few calcified granulomas are noted in the left lower lobe compatible with prior granulo matous disease. Calcified infrahilar lymph nodes are stable. Heart size is normal. Solid organs: Liver and spleen are normal in size and enhancement. Splenic granulomas are noted aga in. Gallbladder is unremarkable. Biliary system is non dilated. Pancreas enhances normally. No adr enal nodules. Kidneys demonstrate normal size and enhancement, without hydronephrosis. Peritoneum and bowel: Bowel loops demonstrate normal wall thickness and caliber. No free fluid or a ir. Normal appendix. Nodes and vessels: No retroperitoneal or mesenteric adenopathy by size criteria. Aorta and inferior vena cava are normal in size. Miscellaneous: No ventral hernias. PELVIS: Genitourinary: Bladder wall thickness is normal. Miscellaneous: No inguinal hernias or adenopathy. Bones: No suspicious bony lesions. No acute vertebral body compression fractures. IMPRESSION: CT abdomen and pelvis without acute abnormalities identified to explain patient's left l ower quadrant abdominal pain. Stable appearance of prior granulomatous disease. Reviewed by: Javad Merida MD on 01/18/2020 1:31 PM PDT Approved by: Javad Merida MD on 01/18/2020 1:31 PM PDT Station ID: [id number]
[2020-01-18] MEDS ORDERED: DICYCLOMINE 10 MG CAPSULE PO STA (13:45)
[2020-01-18 14:03] VITALS: BP 129/81
== END 2020-01-18 14:17 | disposition home or self-care (01) ==
LOC: ED 11:27
DX: K92.1 Melena (principal); R19.7 Diarrhea, unspecified; R10.32 Left lower quadrant pain
CPT/HCPCS: 36415; 74177; 80053; 81003; 81025; 83690; 85025; 96374; 96376; 99284; A9270; Q9967; 81001; 87015; 87086; 87272; 87329

== ENCOUNTER 2022-07-10 07:05 | Emergency (ER) | payer SELFPAY ==
[2022-07-10 07:13] VITALS: BP 152/87
--- NOTE | 2022-07-10 07:30 | ED Physician Documentation ---
PD HPI HEADACHE - Stated complaint Stated Complaint: HEAD PX - Chief complaint Chief Complaint: Neuro - History obtained from History obtained from: Patient - History of Present Illness Timing - onset: Today Timing - onset during: Light activity Timing - duration: Hours Timing - details: Abrupt onset Worst headache ever?: No: Worst headache ever? (feeling similar to prior migraine headaches.) Location: Global Quality: Throbbing, Aching Associated symptoms: Nausea, Vomiting, Vision changes (blurred in right, c/w prior migraines.). No: Fever, Stiff neck, Weakness, Numbness Improved by: No: Meds Worsened by: Light, Noise Contributing factors: No: Recent illness, Trauma Similar symptoms before: Diagnosis Recently seen: Not recently seen Review of Systems Constitutional: denies: Fever, Chills Nose: denies: Rhinorrhea / runny nose, Congestion Throat: denies: Sore throat Respiratory: denies: Cough GI: reports: Nausea, Vomiting Musculoskeletal: denies: Neck pain Neurologic: denies: Focal weakness, Altered mental status PD PAST MEDICAL HISTORY - Past Medical History Cardiovascular: None Respiratory: None Neuro: None Endocrine/Autoimmune: None GI: None 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 : 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 HEENT: None Psych: None Musculoskeletal: None Derm: None - Past Surgical History Past Surgical History: No - Present Medications Home Medications: Ambulatory Orders Medication Instructions Recorded Confirmed Dicyclomine HCl 20 mg PO QID PRN #20 tablet 01/18/20 Escitalopram Oxalate 10 mg PO DAILY #90 tablet 01/18/20 Ondansetron Odt [Zofran] 4 mg TL Q6H PRN #10 tablet 01/18/20 - Allergies Allergies/Adverse Reactions: Allergies Allergy/AdvReac Type Severity Reaction Status Date / Time No Known Drug Allergies Allergy Verified 05/02/20 10:33 - Social History Does the pt smoke?: No Smoking Status: Never smoker Does the pt drink ETOH?: No Does the pt have substance abuse?: No - Immunizations Immunizations are current?: Yes - POLST Patient has POLST: No PD ED PE NORMAL - Vitals Vital signs reviewed: Yes - General General: Alert and oriented X 3, Well developed/nourished, Other (appears in pain due to headache.) - HEENT HEENT: Atraumatic - Neck Neck: Supple, no meningeal sign - Derm Derm: Normal color, Warm and dry - Extremities Extremities: Normal ROM s pain - 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, No motor deficit, No sensory deficit, Normal speech - Psych Psych: Normal mood Results - Vitals Vitals: Vital Signs - 24 hr 07/10/22 07:11 Temperature 36.6 C Heart Rate 124 H Respiratory 20 Rate Blood Pressure 152/87 H O2 Saturation 97 Oxygen O2 Source Room air PD Medical Decision Making - ED course Complexity details: considered differential (Patient has a migraine and is trying to remain at work so given nonsedating medications of Toradol Zofran and Decadron.), d/w patient Departure - Departure Disposition: 01 Home, Self Care Clinical Impression: Migraine headache Qualifiers: Migraine type: without aura Status migrainosus presence: without status migrainosus Intractability: not intractable Qualified Code(s): G43.009 - Migraine without aura, not intractable, without status migrainosus Condition: Stable Record reviewed to determine appropriate education?: Yes Instructions: ED Headache Migraine Comments: Stay well-hydrated through the day. Continue with some Tylenol every 4-6 hours if needed. Return if needed. Discharge Date/Time: 07/10/22 08:38
[2022-07-10] MEDS ORDERED: ONDANSETRON 4 MG/2 ML VIAL IM STA (07:46)
[2022-07-10] MEDS ORDERED: KETOROLAC 30 MG/ML VIAL IM STA (07:46)
[2022-07-10] MEDS ORDERED: ACETAMINOPHEN 500 MG TABLET PO STA (07:47)
[2022-07-10] MEDS ORDERED: DEXAMETHASONE 10 MG/ML VIAL PO STA (07:47)
[2022-07-10] MEDS ORDERED: CHERRY SYRUP 10 ML UDC PO ONE (07:47)
== END 2022-07-10 08:38 | disposition home or self-care (01) ==
LOC: ED 07:05
DX: G43.009 Migraine without aura, not intractable, without status migrainosus (principal)
CPT/HCPCS: 96372; 99283; 99284; A9270